=== PATIENT | female | born 1945 | race Caucasian/White ===

== ENCOUNTER → 2023-09-24 11:23 | Outpatient (REF) | payer MEDICARE, OTHER, SELFPAY ==
[2023-09-24 11:49] LABS: Ionized Calcium 1.24 mMOL/L (1.15-1.33)
[2023-09-24 12:13] LABS: ALT (SGPT) 12 U/L (0-35); AST (SGOT) 22 U/L (14-36); Albumin 3.7 g/dl (3.5-5.0); Alkaline Phosphatase 60 U/L (38-126); Blood Urea Nitrogen 32 mg/dl (7-17); Carbon Dioxide 21 mmol/L (22-30); Chloride 109 mmol/L (98-107); Glucose 112 mg/dl (70-99); Potassium 4.3 mmol/L (3.5-5.1); Sodium 140 mmol/L (135-145); Total Bilirubin 0.5 mg/dl (0.2-1.3); Total Protein 6.6 g/dl (6.3-8.2); eGFR 46.91
[2023-09-24 12:47] LABS: Intact PTH 69.8 pg/ml (13.6-85.8)
[2023-10-01 00:01] LABS: PTH Related Peptide LC-MS/MS 4.2 pmol/L (0.0-3.4)
== END ==
LOC: REG 11:23
PROVIDERS: ATTENDING PHYSICIAN Internal Medicine Endocrinology, Diabetes & Metabolism; FAMILY PHYSICIAN Family Medicine; REFERRING PHYSICIAN Specialist
DX: E83.52 Hypercalcemia (principal); E55.9 Vitamin D deficiency, unspecified; E34.9 Endocrine disorder, unspecified; E04.1 Nontoxic single thyroid nodule; N18.32 Chronic kidney disease, stage 3b
CPT/HCPCS: 36415; 80053; 82330; 83519; 83970

== ENCOUNTER → 2024-01-02 10:24 | Outpatient (REF) | payer MEDICARE, OTHER, SELFPAY ==
[2024-01-02 11:05] LABS: Ionized Calcium 1.26 mMOL/L (1.15-1.33)
[2024-01-02 11:39] LABS: ALT (SGPT) 11 U/L (0-35); AST (SGOT) 23 U/L (14-36); Albumin 4.1 g/dl (3.5-5.0); Alkaline Phosphatase 64 U/L (38-126); Blood Urea Nitrogen 38 mg/dl (7-17); Calcium 10.5 mg/dl (8.4-10.2); Carbon Dioxide 24 mmol/L (22-30); Chloride 105 mmol/L (98-107); Glucose 118 mg/dl (70-99); Potassium 4.7 mmol/L (3.5-5.1); Sodium 141 mmol/L (135-145); Total Bilirubin 0.6 mg/dl (0.2-1.3); Total Protein 7.2 g/dl (6.3-8.2); eGFR 33.22
[2024-01-02 12:09] LABS: TSH 0.61 uIU/ml (0.47-4.68)
[2024-01-04 10:24] LABS: Intact PTH 73.7 pg/ml (13.6-85.8)
== END ==
LOC: REG 10:24
PROVIDERS: ATTENDING PHYSICIAN Internal Medicine Endocrinology, Diabetes & Metabolism; FAMILY PHYSICIAN Family Medicine
DX: E83.52 Hypercalcemia (principal); E55.9 Vitamin D deficiency, unspecified; E34.9 Endocrine disorder, unspecified; E04.1 Nontoxic single thyroid nodule
CPT/HCPCS: 36415; 80053; 82306; 82330; 82652; 83519; 83970; 84443

== ENCOUNTER → 2024-03-23 11:51 | Outpatient (REF) | payer MEDICARE, OTHER, SELFPAY ==
[2024-03-23 16:07] LABS: HDL Cholesterol 37 mg/dl; LDL Cholesterol, Calculated 141 mg/dl; Total Cholesterol 226 mg/dl (50-199); Triglyceride 244 mg/dl (10-149); Very Low Density Lipoprotein 48 mg/dl (0-30)
[2024-03-23 16:57] LABS: Urine Albumin Negative (Neg - Trace); Urine Bilirubin Negative (Negative); Urine Character Clear (Clear); Urine Color Yellow; Urine Glucose Negative (Negative); Urine Ketone Negative (Negative); Urine Leukocyte Negative (Negative); Urine Nitrite Negative (Negative); Urine Occult Blood Negative (Negative); Urine Specific Gravity 1.015 (<1.030); Urine Urobilinogen Negative (Neg - 1+)
== END ==
LOC: HWLAB 11:51
PROVIDERS: ATTENDING PHYSICIAN Specialist; FAMILY PHYSICIAN Family Medicine
DX: N18.32 Chronic kidney disease, stage 3b (principal)
CPT/HCPCS: 36415; 80061; 81003; 84550

== ENCOUNTER → 2024-10-13 09:40 | Outpatient (REF) | payer MEDICARE, OTHER, SELFPAY ==
[2024-10-13 11:53] LABS: ALT (SGPT) 13 U/L (0-35); AST (SGOT) 22 U/L (14-36); Albumin 4.1 g/dl (3.5-5.0); Alkaline Phosphatase 69 U/L (38-126); Blood Urea Nitrogen 42 mg/dl (7-17); Calcium 10.1 mg/dl (8.4-10.2); Carbon Dioxide 22 mmol/L (22-30); Chloride 110 mmol/L (98-107); Glucose 118 mg/dl (70-99); HDL Cholesterol 38 mg/dl; LDL Cholesterol, Calculated 141 mg/dl; Potassium 4.5 mmol/L (3.5-5.1); Sodium 144 mmol/L (135-145); Total Bilirubin 0.7 mg/dl (0.2-1.3); Total Cholesterol 225 mg/dl (50-199); Total Protein 6.9 g/dl (6.3-8.2); Triglyceride 232 mg/dl (10-149); Very Low Density Lipoprotein 46 mg/dl (0-30); eGFR 33.01
[2024-10-13 12:04] LABS: Glycohemoglobin (HgbA1c) 5.8 % (4.0-5.6)
[2024-10-13 12:05] LABS: Intact PTH 97.8 pg/ml (13.6-85.8)
[2024-10-13 12:10] LABS: Vitamin D, 25-OH*** 39.3 ng/mL (30-80)
[2024-10-13 12:24] LABS: TSH 0.86 uIU/ml (0.47-4.68)
[2024-10-13 13:24] LABS: Ionized Calcium 1.27 mMOL/L (1.15-1.33)
== END ==
LOC: REG 09:40
PROVIDERS: ATTENDING PHYSICIAN Internal Medicine Endocrinology, Diabetes & Metabolism; FAMILY PHYSICIAN Family Medicine; REFERRING PHYSICIAN Specialist
DX: E83.52 Hypercalcemia (principal); E55.9 Vitamin D deficiency, unspecified; E34.9 Endocrine disorder, unspecified; E04.1 Nontoxic single thyroid nodule; N18.32 Chronic kidney disease, stage 3b; E66.01 Morbid (severe) obesity due to excess calories; R26.81 Unsteadiness on feet; K21.9 Gastro-esophageal reflux disease without esophagitis; F41.9 Anxiety disorder, unspecified; M10.9 Gout, unspecified; I10 Essential (primary) hypertension; F11.20 Opioid dependence, uncomplicated; E21.3 Hyperparathyroidism, unspecified; I73.9 Peripheral vascular disease, unspecified; Z12.31 Encounter for screening mammogram for malignant neoplasm of breast; G57.02 Lesion of sciatic nerve, left lower limb; M72.2 Plantar fascial fibromatosis; R73.09 Other abnormal glucose
CPT/HCPCS: 36415; 80053; 80061; 82306; 82330; 83036; 83519; 83970; 84443

== ENCOUNTER → 2024-11-05 12:14 | Outpatient (REF) | payer MEDICARE, OTHER, SELFPAY | LOC: HWRAD 12:14 | PROVIDERS: ATTENDING PHYSICIAN Internal Medicine Endocrinology, Diabetes & Metabolism; FAMILY PHYSICIAN Family Medicine; REFERRING PHYSICIAN Specialist | DX: E83.52 Hypercalcemia (principal); E55.9 Vitamin D deficiency, unspecified | CPT/HCPCS: 76536 ==

== ENCOUNTER → 2025-05-24 11:58 | Outpatient (REF) | payer MEDICARE, OTHER, SELFPAY ==
[2025-05-24 16:19] LABS: HDL Cholesterol 35 mg/dl; LDL Cholesterol, Calculated 83 mg/dl; Very Low Density Lipoprotein 27 mg/dl (0-30)
[2025-05-25 09:33] LABS: Glycohemoglobin (HgbA1c) 6.0 % (4.0-5.9)
== END ==
LOC: HWLAB 11:58
PROVIDERS: ATTENDING PHYSICIAN Family Medicine
DX: R73.01 Impaired fasting glucose (principal); I10 Essential (primary) hypertension
CPT/HCPCS: 36415; 80061; 83036